=== PATIENT | male | born 1975 | race African-American/Black ===

== ENCOUNTER 2018-01-25 03:39 | Emergency (ER) | payer SELFPAY ==
[~2018-01-25] VITALS: Ht 195.6 cm; Wt 156.6 kg
[2018-01-25 03:49] VITALS: BP 134/74
[2018-01-25] MEDS ORDERED: KEFLEX500 M1 PO (04:03)
[2018-01-25] MEDS ORDERED: BACTRIM DS1 TAB PO (04:03)
[2018-01-25] MEDS ORDERED: PERCOCET 5/325M1 TAB PO (04:04)
== END 2018-01-25 04:23 | disposition home or self-care (01) | DRG 603 ==
LOC: ED 03:39
DX: L02.31 Cutaneous abscess of buttock (principal)